=== PATIENT | female | born 1970 | race Two or more races ===

== ENCOUNTER 2021-08-18 11:48 | Emergency (ER) | payer OTHER ==
[~2021-08-18] VITALS: Ht 160 cm; Wt 74.8 kg
[2021-08-18] MEDS ORDERED: MOTION SICKNESS25 M1 PO (15:38)
== END 2021-08-18 16:05 ==
LOC: ER 11:48
DX: R42 Dizziness and giddiness (principal); E86.0 Dehydration